=== PATIENT | male | born 1925 | race Caucasian/White ===

== ENCOUNTER 2017-02-06 17:15 | Inpatient (IN) | payer MEDICARE, OTHER ==
--- NOTE | ~2017-02-06 | DS ---
Discharge Summary [id number] [place]. [address] NAME: TONY LA : [birth year] STATUS : DIS IN PAT#: [id number] AGE: 89 ADM/REG DATE : 02/06/17 MR#: [id number] REPORT SERV DATE: 02/11/17 DICTATED BY: JAOSN MCDUFFIE DATE: 02/10/17 REPORT STATUS : Draft TRANSCRIBED BY: MODL DATE: 02/10/17 ADMISSION DATE: 02/06/2017 DISCHARGE DATE: 02/10/2017 The patient was admitted to the Hospitalist Service. ASSISTANT MANAGER PT: Dr. Jamel Awad, Orthopedics. DISCHARGE DIAGNOSES: 1. Status post T10-L2 fusion. 2. Diabetes mellitus type 2 with hyperglycemia, A1c 6.3. 3. Hypertension. 4. Hyperlipidemia. 5. Rhabdomyolysis, resolved. PROCEDURES: 02/07/2017, the patient underwent complete laminectomy, foraminotomy, facetectomy, T11-T12 and T12-L1; complete laminectomy, foraminotomy at L4-5 and L5-S1; posterolateral spinal fusion with segmental titanium instrumentation, T10 through L2 per Dr. Jamel Awad. IMAGING AND DIAGNOSTICS: 1. 02/06/2017, MRI of L-spine, thoracic spine, and cervical spine revealed moderate-severe focal central spinal stenosis C3-4 and severe focal central spinal stenosis C4-5 caused by disk osteophyte formation with 6.2 mm AP canal diameter C3-C4 and 5.9 mm AP canal diameter at C4-5. Flattening of the anterior cervical cord contour at both levels, although no cord signal changes to suggest myelomalacia. This may represent clinically significant spinal stenosis, very mild central focal spinal stenosis C6 through 7, not felt to be clinically significant. Moderate focal central spinal stenosis C7-T1, not to be felt clinically significant and multilevel bony neural foraminal narrowing of mild to moderate severity bilateral C3-4, bilateral C4-5, and left at C5-6 and bilaterally at C6-7; severe degenerative disk disease T11 through T12 with severe loss of disk height; severe focal central spinal stenosis L2-3, L4-5, and L5-S1. 2. A portable chest x-ray on 02/08/2017 revealed no pneumothorax, development of subcutaneous air in the left supraventricular region, heart normal size, lungs clear. LABORATORY STUDIES: 1. 02/08/2017, basic metabolic panel revealed a sodium of 135, potassium 4.5, chloride 100, CO2 of 29, BUN 21, creatinine 1.02, glucose 158, calcium 8.4. 2. 02/08/2017, CBC revealed a white count 11.6, hemoglobin 10.4, hematocrit 30.3. 3. 02/10/2017, hemoglobin and hematocrit 10.6 and 30.3. HISTORY OF PRESENT ILLNESS: For complete history, please refer to admission H and P by Dr. Toi Frank on 02/05/2017 at [facility]. Briefly, Mr. La presented to the emergency room with complaints of legs giving out, inability to walk or stand, progressively worsening over the past three weeks. He did have a fall in his driveway back in October of 2016, and his primary care provider recommended that he see an orthopedic provider. He was Discharge Summary [address] [address] NAME: TONY LA : [birth year] STATUS : DIS IN PAT#: [id number] AGE: 89 ADM/REG DATE : 02/06/17 MR#: [id number] REPORT SERV DATE: 02/11/17 DICTATED BY: JASON MCDUFFIE DATE: 02/10/17 REPORT STATUS : Draft TRANSCRIBED BY: LEONARDO DATE: 02/10/17 admitted to the Hospitalist Service at the [facility] on 02/05/2017 and subsequently transferred to the [facility] on 02/07/2016. HOSPITAL COURSE: Dr. Jamel Awad saw Mr. La in consultation on 02/06/2017 and recommended surgery. On 02/07/2017, Mr. La did undergo surgery by Dr. Awad as above. His hospital course postoperatively was uneventful. I saw Mr. La for the first time today, 02/10/2017. He was alert and oriented, somewhat hard of hearing. Otherwise, no focal deficits. Cooperative, in no acute distress. Awake, alert, and oriented x3. His lungs were clear to auscultation bilaterally. CV: He had regular rhythm. No murmurs, rubs, or gallops. Abdomen: Soft and nontender. Active bowel sounds. No peripheral edema. His back dressing was clean, dry, and intact. His vital signs were stable. Last blood pressure recorded 139/68, heart rate 90, O2 saturation 97% on room air and he was afebrile at 97.6. Mr. La has been okayed for transfer to rehab per Dr. Jamel Awad. I am in agreement with this and he will be discharged today to [facility]. I have asked Mr. La to follow up with his primary care provider, Dr. Maddie Bass after discharge from rehab. DISCHARGE INSTRUCTIONS: 1. Diet. Diabetic, 2000 calorie diet is recommended. 2. Activity as tolerated. Physical Therapy and Occupational Therapy evaluation and treatment. DISCHARGE MEDICATIONS: Are as follows: 1. Colace 100 mg p.o. b.i.d. 2. Robaxin 500 mg p.o. every eight hours p.r.n., prescription provided. 3. Diovan 160 mg p.o. b.i.d. 4. Mylanta 30 mL p.o. p.r.n. indigestion. 5. Bisacodyl 15 mg p.o. p.r.n. for constipation. 6. Glucophage 500 mg p.o. daily. 7. Amaryl 1 mg p.o. daily. 8. Hydrocodone 5/325 mg one to two tablets p.o. q.4-6h. p.r.n., pain prescription provided. 9. Milk of magnesia 30 mL p.o. b.i.d. p.r.n. constipation. 10.I am discontinuing his Lipitor 10 mg. I will defer this to reassessment by his primary care provider, Dr. Maddie Bass. Mr. La did have some rhabdomyolysis upon admission, which has resolved. He will receive bladder training at [facility] for 24 hours and discontinuation of the Aguilar tomorrow. Again, he is stable for transfer to rehab today, 02/10/2017. JEANETTE/MODL JEAN PIERRE Clinton / [id number] Discharge Summary [address] [address] NAME: TONY LA : [birth year] STATUS : DIS IN PAT#: [id number] AGE: 89 ADM/REG DATE : 02/06/17 MR#: [id number] REPORT SERV DATE: 02/11/17 DICTATED BY: JASON MCDUFFIE DATE: 02/10/17 REPORT STATUS : Draft TRANSCRIBED BY: MODL DATE: 02/10/17 CC: Prudencio Ignacio D.O. Dabney James, M.D.
--- NOTE | ~2017-02-06 | OP ---
Record Of Operation [facility] [address] [place]. [address] NAME: TONY LA : [birth year] STATUS : ADM IN [facility]#: [id number] AGE: 89 ADM/REG DATE : 02/06/17 MR#: [id number] REPORT SERV DATE: 02/07/17 DICTATED BY: JAMEL LONG DATE: 02/07/17 REPORT STATUS : Draft TRANSCRIBED BY: MODL DATE: 02/07/17 DATE OF PROCEDURE: PREOPERATIVE DIAGNOSES: 1. Severe spinal stenosis with myelopathy and myelomalacia T11-12. 2. Severe spinal stenosis with myelopathy at T12-L1. 3. Severe spinal stenosis centrally and lateral recess at L4-5 and L5-S1. POSTOPERATIVE DIAGNOSIS: 1. Severe spinal stenosis with myelopathy and myelomalacia T11-12. 2. Severe spinal stenosis with myelopathy at T12-L1. 3. Severe spinal stenosis centrally and lateral recess at L4-5 and L5-S1. PROCEDURE: 1. Navigation-assisted surgery. 2. Complete laminectomy, foraminotomy, facetectomy T11-12 and T12-L1. 3. Complete laminectomy foraminotomy at L4-5 and L5-S1. 4. Posterolateral spinal fusion with segmental SOLERA titanium instrumentation, T10 to L2. SURGEON: Jamel Long D.O. INSPECTOR: Chuy Bass. ANESTHESIA: General. BLOOD LOSS: 75 mL. INDICATIONS FOR SURGERY: Indications for surgery and risks were explained. Please see the consultation I have dictated. In addition, I talked with the patient and son in the preop holding area this morning before surgery. I explained to him the worst two outcomes that can happen in a case like this is either a complete paralysis, inability to ever walk again, loss of bowel and bladder function, or . It is an extremely challenging case in an 89- year-old male, but because of his extremely active lifestyle for a person of his age, we proceeded. After identification in the preop holding area, antibiotic prophylaxis given. Neurophysiology monitoring lead was inserted. The patient was brought to the operative suite. General anesthetic including endotracheal intubation was administered. Aguilar catheter was placed with sterile technique. He was then clam shelled and a Clay Spine Frame rotated 180 degrees into a prone position. Bony prominences were carefully padded. Thoracolumbar spine was scrubbed with Hibiclens solution. DuraPrep was painted and sterile drapes applied. Because of the complexity of surgery and the need to identify the correct level of surgery intraoperatively as well as desire to carry out the safest and most precise dissection with the least amount of radiation exposure, we felt intraoperative navigation was mandatory. Record Of Operation [facility] [address] [place]. [address] NAME: TONY LA : [birth year] STATUS : ADM IN PAT#: [id number] AGE: 89 ADM/REG DATE : 02/06/17 MR#: [id number] REPORT SERV DATE: 02/07/17 DICTATED BY: JAMEL LONG DATE: 02/07/17 REPORT STATUS : Draft TRANSCRIBED BY: LEONARDO DATE: 02/07/17 With headlight illumination and loupe magnification and with navigational assistance, we identified the L4-5 and L5-S1. A midline incision was carried out. The fascia was divided left and right of midline. The paraspinous muscles retracted laterally. We then used a combination of Leksell and Kerrison rongeurs as well as a cutting bur and a alissa bur, and we completed a complete laminectomy involving S1, L5, L4 with foraminotomy at each level. There was severe central and lateral recess stenosis due to a combination of ligamentum flavum and facet hypertrophy. We were able to do the decompression without any problems such as a dural tear, etc. After the decompression, the wounds were irrigated. The fascial layer was closed with double looped #1 PDS suture. Subcutaneous issue closed with 2-0 Vicryl suture and 2-0 vertical mattress nylon suture was used for skin closure. We then again moved to the thoracolumbar junction. With navigational assistance, we identified the correct level of surgery and once again, we carried out a midline incision. Paraspinous muscles were retracted from T10-L2. Wide exposure was carried out. We used a 2 mm alissa bur with navigational assistance and created pilot boat deckhand holes in the pedicles of T10, 11, 12, L1 and 2. Once these were created, we also then tapped the pedicles of each level bilaterally. We then used a combination of a thin footed 1 and 2 mm as well as 3 mm Kerrison rongeurs as well as a cutting bur, a alissa bur, and we completed, started at the bottom of L1 lamina. We removed the entire lamina and portion of the medial facet of L1, T12, and T11 all the way to the bottom of T10. At T11-12 and T12-L1, we also removed the facet joints completely because there was such severe stenosis and the facet joints needed to be completely removed as they were. After the decompression was completed again, we had no change in the motor-evoked potentials which was very weak signal on 1 side and did not change. Somatic evoked potentials were never present and never returned. The EMGs remained normal throughout the surgery. Finally after the decompression was completed, we then placed the polyaxial SOLERA titanium screws at T10, 11, 12, L1, and L2. Titanium alyssa was cut, was left in a straight-aligned position. It was placed over the top-loading screws. The set screws inserted and tightened with a torque wrench providing rigid stability. Intraoperative CT scan with O-arm repeated showing excellent position of all implants. Finally posterior spinal fusion was carried out using a combination of local bone graft, allograft, and a small dosage of bone morphogenic protein. T10-L2 bilateral. There was no significant bleeding. A drain was necessary. Vancomycin powder was placed in the wound and fascial layer was closed with the interrupted #1 Vicryl suture. The subcutaneous tissue closed with 2-0 Vicryl sutures, 2-0 vertical mattress nylon suture used for skin closure. Sterile dressings applied. The patient now returned to the supine position, awakened, extubated, taken to the recovery room in satisfactory condition, having tolerated the procedure well. Sponge, needle, and instrument counts were correct. No intraoperative complications noted. SH/MODL Jamel Record Of Operation [address] [address] NAME: TONY LA : [birth year] STATUS : ADM IN [facility]#: [id number] AGE: 89 ADM/REG DATE : 02/06/17 MR#: [id number] REPORT SERV DATE: 02/07/17 DICTATED BY: JAMEL LONG DATE: 02/07/17 REPORT STATUS : Draft TRANSCRIBED BY: MODL DATE: 02/07/17 Linda Long / [id number] CC: Jose Eduardo Alicia M.D.
--- NOTE | ~2017-02-06 | CN ---
Consultation Report [facility] [address] [place]. [address] NAME: TONY LA : [birth year] STATUS : ADM IN PAT#: [id number] AGE: 89 ADM/REG DATE : 02/06/17 MR#: [id number] REPORT SERV DATE: 02/06/17 DICTATED BY: JAMEL LONG DATE: 02/06/17 REPORT STATUS : Draft TRANSCRIBED BY: MODL DATE: 02/06/17 CONSULTATION DATE OF CONSULTATION: CHIEF COMPLAINT: Weakness in both lower extremities, inability to walk. HISTORY OF PRESENT ILLNESS: This is an 89-year-old very active gentleman, much younger than his stated chronological age, who has been in [facility] for the last two days. The patient gives a history of being extremely active up until about 10/2016. The patient said he was driving his car, he would walk four miles a day, he did pushups every day, etc. He is functioning at a very high level and did not have to have any assistive device until October. He noted in October, he was starting to have some feeling of tiredness in his legs and had a little imbalance. He started using a cane in October and was doing a little worse each week, but he still was driving up until about a week to 10 days ago. Approximately a week ago, he really started having much more weakness in his lower extremities. He started falling, he has fallen at least once or twice a day because his legs were just spasm and gave out. He had uncontrolled spasms in both lower extremities. Ultimately, his son came from [facility], brought him to the ER at [facility]. He was admitted there yesterday. He was seen by Dr. Harvey Stout, neurologist, who then had an MRI of the cervical, thoracic, and lumbar spine performed today, and Dr. Stout called me today around noon. The patient was found to have some moderate degree of stenosis at C3- 4, C4-5, C6-7, and C7-T1. Did not have major myelopathy in the upper extremities by exam. Did not have any myelomalacia in the cervical spine. In the thoracic spine though, he was found to have extremely severe stenosis centrally at T11-12 with a canal of only 3.5 mm. This was mainly from facet hypertrophy and did have myelomalacia of the cord. This certainly seemed to be the most problematic area. In addition, he was found to have severe central canal stenosis at L4-5 and L5-S1. The patient has not lost control of bowel and bladder function, but he does have a sensory level of about T11 per Dr. Stout. He also has weakness, it is only 2/5 in the lower extremities. He was transferred to the [facility] for more definitive care. PAST MEDICAL HISTORY: Includes diabetes mellitus type 2, hypertension, hypercholesterolemia, and osteoarthritis. CURRENT MEDICATIONS: Noted in the chart. ALLERGIES: NONE. SOCIAL HISTORY: He still lives alone and has for many years. Does not use any tobacco or alcohol. PHYSICAL EXAMINATION: GENERAL: He is alert, cooperative, and well oriented. He was in the bed. Did witness him Consultation Report [id number] [facility] [place]. [address] NAME: TONY LA : [birth year] STATUS : ADM IN [facility]#: [id number] AGE: 89 ADM/REG DATE : 02/06/17 MR#: [id number] REPORT SERV DATE: 02/06/17 DICTATED BY: JAMEL LONG DATE: 02/06/17 REPORT STATUS : Draft TRANSCRIBED BY: LEONARDO DATE: 02/06/17 to a use his arms with a walker and actually was able to pivot out of bed, but again, he totally lifts himself with his upper extremities, which are very strong, but his lower extremities truly have significant weakness. His upper extremities have strength of 5/5, reflexes are 0/4. There is no sensory deficit in the upper extremities. Nisha sign is negative. In the lower extremities, his strength is only 2 to 3 over 5 in the iliopsoas, adductor, abductors, quadriceps, hamstrings, tibialis anterior, and gastroc soleus. His reflexes are actually dampened. They are not hyperreflexic. His toes are upgoing. He does have uncontrolled spasticity. He does have a T11 sensory level that is partial. He does not have a dense sensory loss. : Rectal exam was not performed. He already has a Aguilar catheter in place. IMAGING: MRIs of the cervical, thoracic, and lumbar spine has been reviewed and I agree with the findings. ASSESSMENT: Severe paraparesis, 2/5 strength with motor and some sensory component secondary to T11-12 severe stenosis, cord compression, and myelopathy by exam and myelomalacia on the MRI. He also has severe central canal stenosis L4 to S1. RECOMMENDATIONS: Even though this gentleman is very advanced in age and certainly high risk for surgical intervention, he does appear to warrant intervention, as he is at such high risk of developing continued worsening of his paralysis. He would need a complete laminectomy, foraminotomy, and facetectomy at T11-12. This would thus require stabilization, which would be a posterolateral fusion with instrumentation. He would also need L4 to S1 open laminectomy and partial facetectomy to decompress the lower canal. Understanding by the patient is that he could have quadriplegia or paralysis or even from the stress of surgery including, but not limited to, CVA, PA, pneumonia, sepsis, etc. The patient insists that he wants to proceed with surgery no matter what. We will proceed tomorrow morning. ESTELA/MODL Jamel Long D.O. / [id number] CC: Jose Eduardo Alicia M.D.
[~2017-02-06 17:15] MED LIST: AMARYL1 MG PO; ASAB PO; DIOV160 PO; GLUCPH PO; LIPITOR10 PO; MULTIPLE VIT PO
[2017-02-07 05:31] LABS: BASOPHILS 0.1 %; BASOPHILS ABSOLUTE 0.01 10/3/uL (0.0-0.16); EOSINOPHILS 0 %; HEMATOCRIT 33.2 % (40.0-51.0); HEMOGLOBIN 11.6 g/dL (13.6-17.8); IMMATURE GRANULOCYTES 0.2 %; IMMATURE GRANULOCYTES ABSOLUTE 0.02 10/3/uL (0.0-0.11); LYMPHOCYTES 11.7 %; LYMPHOCYTES ABSOLUTE 1.08 10/3/uL (0.67-4.30); MEAN CORPUS HGB CONC 34.9 g/dL (32.0-36.0); MEAN CORPUSCULAR HEMOGLOB 30.6 pg (26.0-34.0); MONOCYTES 6.5 %; NEUTROPHILS 81.5 %; NEUTROPHILS ABSOLUTE 7.53 10/3/uL (2.02-8.40); PLATELET COUNT 247 10/3/uL (150-400); RBC DISTRIBUTION WIDTH 12.6 % (12.0-16.0); RED CELL COUNT 3.79 10/6/uL (4.7-6.1); WHITE BLOOD CELLS 9.2 10/3/uL (4.5-10.5)
[2017-02-07 05:40] LABS: MANUAL DIFF NO %; MEAN CORPUSCULAR VOLUME 87.6 fL (80-100)
[2017-02-07 05:49] LABS: BUN (BLOOD UREA NITROGEN) 15 MG/DL (6-23); CALCIUM, SERUM 8.4 MG/DL (8.5-10.4); CHLORIDE, SERUM 99 MMOL/L (96-112); CO2 (CARBON DIOXIDE) 27 MMOL/L (24-34); CPK 215 U/L (0-200); CREATININE 0.77 MG/DL (0.70-1.30); GFR AFRICAN AMERICAN 93 ML/MIN (>=60); GFR NON AFRICAN AMERICAN 80 ML/MIN (>=60); GLUCOSE, SERUM 135 MG/DL (60-99); SODIUM, SERUM 137 MMOL/L (135-148)
[2017-02-07 13:28] LABS: BASOPHILS 0 %; EOSINOPHILS 0 %; HEMATOCRIT 30.2 % (40.0-51.0); HEMOGLOBIN 10.6 g/dL (13.6-17.8); IMMATURE GRANULOCYTES 0.7 %; IMMATURE GRANULOCYTES ABSOLUTE 0.07 10/3/uL (0.0-0.11); LYMPHOCYTES ABSOLUTE 0.32 10/3/uL (0.67-4.30); MEAN CORPUS HGB CONC 35.1 g/dL (32.0-36.0); MEAN CORPUSCULAR HEMOGLOB 30.7 pg (26.0-34.0); MEAN CORPUSCULAR VOLUME 87.5 fL (80-100); MEAN PLATELET VOLUME 9.6 fL (9.2-13.0); MONOCYTES 2.5 %; MONOCYTES ABSOLUTE 0.27 10/3/uL (0.21-1.20); NEUTROPHILS 93.8 %; PLATELET COUNT 223 10/3/uL (150-400); RBC DISTRIBUTION WIDTH 12.6 % (12.0-16.0); RED CELL COUNT 3.45 10/6/uL (4.7-6.1); WHITE BLOOD CELLS 10.7 10/3/uL (4.5-10.5)
[2017-02-07 13:35] LABS: MANUAL DIFF NO %
[2017-02-07 13:38] LABS: CALCIUM, SERUM 7.9 MG/DL (8.5-10.4); CHLORIDE, SERUM 99 MMOL/L (96-112); CO2 (CARBON DIOXIDE) 27 MMOL/L (24-34); CREATININE 0.84 MG/DL (0.70-1.30); GFR AFRICAN AMERICAN 90 ML/MIN (>=60); GFR NON AFRICAN AMERICAN 78 ML/MIN (>=60); POTASSIUM, SERUM 4.6 MMOL/L (3.5-5.3); SODIUM, SERUM 135 MMOL/L (135-148)
[2017-02-07 13:39] LABS: BUN (BLOOD UREA NITROGEN) 19 MG/DL (6-23); GLUCOSE, SERUM 207 MG/DL (60-99)
[2017-02-08 05:06] LABS: BASOPHILS 0 %; EOSINOPHILS 0 %; HEMATOCRIT 30.3 % (40.0-51.0); HEMOGLOBIN 10.4 g/dL (13.6-17.8); IMMATURE GRANULOCYTES 0.3 %; IMMATURE GRANULOCYTES ABSOLUTE 0.04 10/3/uL (0.0-0.11); LYMPHOCYTES 4.8 %; LYMPHOCYTES ABSOLUTE 0.56 10/3/uL (0.67-4.30); MEAN CORPUS HGB CONC 34.3 g/dL (32.0-36.0); MEAN CORPUSCULAR HEMOGLOB 30.4 pg (26.0-34.0); MEAN CORPUSCULAR VOLUME 88.6 fL (80-100); MEAN PLATELET VOLUME 10.2 fL (9.2-13.0); MONOCYTES 8.4 %; MONOCYTES ABSOLUTE 0.97 10/3/uL (0.21-1.20); NEUTROPHILS 86.5 %; NEUTROPHILS ABSOLUTE 10.02 10/3/uL (2.02-8.40); PLATELET COUNT 237 10/3/uL (150-400); RBC DISTRIBUTION WIDTH 12.9 % (12.0-16.0); RED CELL COUNT 3.42 10/6/uL (4.7-6.1); WHITE BLOOD CELLS 11.6 10/3/uL (4.5-10.5)
[2017-02-08 05:08] LABS: MANUAL DIFF NO %
[2017-02-08 05:14] LABS: BUN (BLOOD UREA NITROGEN) 21 MG/DL (6-23); CALCIUM, SERUM 8.4 MG/DL (8.5-10.4); CHLORIDE, SERUM 100 MMOL/L (96-112); CO2 (CARBON DIOXIDE) 29 MMOL/L (24-34); CREATININE 1.02 MG/DL (0.70-1.30); GFR AFRICAN AMERICAN 75 ML/MIN (>=60); GFR NON AFRICAN AMERICAN 65 ML/MIN (>=60); POTASSIUM, SERUM 4.5 MMOL/L (3.5-5.3); SODIUM, SERUM 135 MMOL/L (135-148)
[2017-02-08 05:15] LABS: GLUCOSE, SERUM 158 MG/DL (60-99)
[2017-02-10 04:13] LABS: HEMATOCRIT 30.3 % (40.0-51.0); HEMOGLOBIN 10.6 g/dL (13.6-17.8)
== END 2017-02-10 12:59 | DRG 460 ==
LOC: 3SO 17:15
PROVIDERS: Internal Medicine; Orthopaedic Surgery Orthopaedic Surgery of the Spine
PROC: 0RG70Z1 (ICD-10-PCS; principal; 2017-02-06)
PROC: 0RGA0Z1 (ICD-10-PCS; 2017-02-06)
PROC: 0SG00Z1 (ICD-10-PCS; 2017-02-06)
PROC: 4A11X4G Monitoring of Peripheral Nervous Electrical Activity, Intraoperative, External Approach (ICD-10-PCS; 2017-02-06)
DX: M51.04 Intervertebral disc disorders with myelopathy, thoracic region (principal); M62.82 Rhabdomyolysis; E11.9 Type 2 diabetes mellitus without complications; M51.06 Intervertebral disc disorders with myelopathy, lumbar region; I10 Essential (primary) hypertension; E78.5 Hyperlipidemia, unspecified; Z79.84 Long term (current) use of oral hypoglycemic drugs; G25.3 Myoclonus; Z91.81 History of falling; E78.00 Pure hypercholesterolemia, unspecified
CPT/HCPCS: 36415; 70450; 71010; 72141; 72146; 72148; 80048; 80053; 81001; 82550; 82962; 83036; 84145; 84439; 84443; 84484; 85014; 85018; 85025; 85652; 86850; 86900; 86901; 87641; 88304; 88311; 93005; 97116-GP; 97162-GP; 99285; A9270-GY; C1713; G8978-CL-GP; G8979-CJ-GP; J0690; J1644; J2370; J2405; J2710; J3010; J3370; J3480; P9045